=== PATIENT | male | born 1935 | race Two or more races ===

== ENCOUNTER 2018-10-23 14:30 | Inpatient (IN) | payer OTHER ==
[~2018-10-23] VITALS: Ht 157.5 cm; Wt 75.7 kg
[2018-11-10] MEDS ORDERED: RANITIDINE HCL300 MG PO (08:09)
[2018-11-10] MEDS ORDERED: IRBESARTAN300 MG PO (08:09)
[2018-11-10] MEDS ORDERED: METOPROLOL SUC200 MG PO (08:09)
[2018-11-10] MEDS ORDERED: CILOSTAZOL100 MG PO (08:10)
[2018-11-10] MEDS ORDERED: ATORVASTATIN CA80 MG PO (08:10)
[2018-11-10] MEDS ORDERED: ANORO ELLIPTA1 EACH IH (08:10)
[2018-11-10] MEDS ORDERED: CHLORTHALIDONE25 MG PO (08:11)
[2018-11-10] MEDS ORDERED: MONTELUKAST SOD10 MG PO (08:11)
[2018-11-10] MEDS ORDERED: ALLERGY RELIEF10 MG PO (08:11)
[2018-11-10] MEDS ORDERED: REFRESH TEARS15 ML OP (08:13)
[2018-11-10] MEDS ORDERED: ASA-EC81 MG PO (08:13)
[2018-11-10] MEDS ORDERED: LEVO-T25 MCG PO (08:14)
[2018-11-10] MEDS ORDERED: METFORMIN HCL1000 MG PO (08:18)
[2018-11-12] MEDS ORDERED: OXYC1TAB9 PO (11:08)
[2018-11-12] MEDS ORDERED: INTESTINEX680 M1 PO (11:09)
== END 2018-11-12 11:43 | DRG 330 ==
LOC: SURG 11-02 10:45 → O/R 11-09 09:57 → SURG 11-09 09:57
PROVIDERS: ADMIT Surgery
PROC: 07TB4ZZ Resection of Mesenteric Lymphatic, Percutaneous Endoscopic Approach (ICD-10-PCS; 2018-11-09)
PROC: 0DJD8ZZ Inspection of Lower Intestinal Tract, Via Natural or Artificial Opening Endoscopic (ICD-10-PCS; 2018-11-09)
PROC: 4A033R1 Measurement of Arterial Saturation, Peripheral, Percutaneous Approach (ICD-10-PCS; 2018-11-09)
PROC: 3E0F7GC Introduction of Other Therapeutic Substance into Respiratory Tract, Via Natural or Artificial Opening (ICD-10-PCS; 2018-11-09)
PROC: 4A12X4Z Monitoring of Cardiac Electrical Activity, External Approach (ICD-10-PCS; 2018-11-09)
PROC: 0DTN4ZZ Resection of Sigmoid Colon, Percutaneous Endoscopic Approach (ICD-10-PCS; principal; 2018-11-09 14:00)
DX: C18.7 Malignant neoplasm of sigmoid colon (principal); C77.2 Secondary and unspecified malignant neoplasm of intra-abdominal lymph nodes; I13.10 Hypertensive heart and chronic kidney disease without heart failure, with stage 1 through stage 4 chronic kidney disease, or unspecified chronic kidney disease; N18.3 Chronic kidney disease, stage 3 (moderate); E78.00 Pure hypercholesterolemia, unspecified; E11.9 Type 2 diabetes mellitus without complications; I87.2 Venous insufficiency (chronic) (peripheral); G47.33 Obstructive sleep apnea (adult) (pediatric); E66.8 Other obesity